=== PATIENT | male | born 1990 | race Caucasian/White ===

== ENCOUNTER 2020-08-16 15:43 | Emergency (ER) | payer OTHER, SELFPAY ==
[2020-08-16 15:51] VITALS: BP 155/110; PULSE 91; RESP 16; TEMP 37.2; O2SAT 99
--- NOTE | 2020-08-16 15:54 | ED.GENADULT ---
HPI - General Adult General Chief complaint: Unspecified Stated complaint: elevated bp Time Seen by Provider: 08/16/20 15:55 Source: patient Mode of arrival: ambulatory History of Present Illness HPI narrative: Cedrick Llanos is a 30 yo male with a PMH of HTN who comes to express care after work today did show that he had high blood pressure. Patient has had high blood pressure in the past and states he lost some weight, and he stopped taking his blood pressure medication. His blood pressure is 135/100, no symptoms no headache or blurred vision To stop taking blood pressure medication with the last couple of years since he had some weight loss; has regained most of the weight that he lost. Related Data Home Medications Medication Instructions Recorded Confirmed No Home Medications 08/16/20 08/16/20 Allergies Allergy/AdvReac Type Severity Reaction Status Date / Time amoxicillin Allergy Unknown Verified 08/16/20 15:58 cefprozil Allergy Unknown Verified 08/16/20 15:58 Penicillins Allergy Unknown Skin Verified 08/16/20 15:58 Reaction Review of Systems Review of Systems: Narrative: CONSTITUTIONAL: Denies fever, chills, sweats. EYES: Denies visual changes, redness, discharge. ENT: Denies rhinorrhea, congestion, sore throat, otalgia. CARDIOVASCULAR: Denies chest pain, palpitations, edema. RESPIRATORY: Denies dyspnea, wheezing, cough GASTROINTESTINAL: Denies abdominal pain, nausea, vomiting, diarrhea. GENITOURINARY: Denies dysuria, hematuria, abnormal discharge SKIN: Denies rash or itching. NEUROLOGIC: Denies numbness, or focal weakness. PSYCHIATRIC: Denies anxiety or depression. Sent here from work because of high blood pressure PMFSH Past Medical History Medical History HTN (hypertension) Family History Family History Other Hypertension Social History Social History (Updated 08/16/20 @ 16:02 by Yenni Gilmore CNP) Smoking status: Never smoker Alcohol intake: current Gender identity (if verbalized by the patient): Male Comments At time of signature, I agree with nursing past medical, surgical, social and family history. There is no relevant family history pertinent to the presenting complaint. Exam Narrative: Exam Narrative: GENERAL: This is a well-nourished, well-developed patient, in mild distress. HEAD: normocephalic, atraumatic. EYES: Sclera clear/white. Vision is grossly intact. EARS: External ears normal Hearing grossly intact. NOSE: External nose normal without nasal discharge, nares without redness, no rhinorrhea. THROAT: Mucous membranes moist, NECK: Neck supple, CARDIOVASCULAR: Regular rate and rhythm without murmurs, gallops, or rubs. RESPIRATORY: Clear to auscultation. Breath sounds equal bilaterally. No wheezes, rales, or rhonchi. GASTROINTESTINAL: Abdomen soft, SKIN: warm, intact with no suspicious lesions or rash, good texture and turgor. NEURO: awake, alert, and oriented to person, place and time. There were no obvious focal neurologic abnormalities. Steady gait EXTREMITIES: Normal range of motion. BACK: Nontender without deformity Course Course Emergency Course: Patient here from work after work-related physical exam with elevated blood pressure; he is asymptomatic for elevated blood pressure at this time. Patient states he is not exercising at this time he also does not smoke cigarettes Patient started on lisinopril 10 mg; he is to make an appointment with his primary care physician and get blood work done, as well as get his dosage adjusted upwards Patient discharged with recommendation of follow-up with his primary care physician Vital Signs Vital signs: Vital Signs Temperature 98.9 F 08/16/20 15:51 Pulse Rate 91 08/16/20 15:51 Respiratory Rate 16 08/16/20 15:51 Blood Pressure 155/110 H 08/16/20 15:51 Pulse Oximetry 99 08/16/20 15:51
--- NOTE | 2020-08-16 16:03 | PC.NURSE ---
1555- Contacted Maria Esther at [facility], states they have never filled HTN medication for pt.
== END 2020-08-16 16:14 | disposition home or self-care (01) ==
PROVIDERS: Emergency Provider Nurse Practitioner
DX: I10 Essential (primary) hypertension (principal)
CPT/HCPCS: 99213; G0463